=== PATIENT | male | born 1995 | race Caucasian/White ===

== ENCOUNTER 2019-09-02 15:09 | Outpatient (CLI) | payer BC, SELFPAY ==
[2019-09-02 15:41] LABS: Basophils Absolute Auto 0.1 K/mm3 (0.0-0.1); Basophils Percent Auto 0.6 % (0.2-1.2); Eosinophils Absolute Auto 0.3 K/mm3 (0-0.3); Hematocrit 39.8 % (42.0-52.0); Hemoglobin 13.9 g/dL (14.0-18.0); Immature Granulocyte Absolute 0.03 K/mm3 (0.00-0.031); Immature Granulocyte Percent A 0.4 % (0-0.5); Lymphocytes Absolute Auto 2.68 K/mm3 (0.9-3.2); Lymphocytes Percent Auto 34.4 % (18.3-44.2); Mean Corpuscular HGB Conc 34.9 g/dl (32-36); Mean Corpuscular Hemoglobin 28.3 pg (26-34); Mean Corpuscular Volume 81.1 fl (80-100); Mean Platelet Volume 8.9 fl (7.4-10.4); Monocytes Absolute Auto 0.7 K/mm3 (0.1-0.6); Monocytes Percent Auto 8.6 % (2.6-8.5); Neutrophils Absolute Auto 4.1 K/mm3 (1.3-6.7); Platelet Count Result 364 k/mm3 (150-375); Red Blood Count 4.91 M/mm3 (4.6-6.20); Red Cell Distribution Width 12.4 % (11.5-14.5); White Blood Count 7.8 K/mm3 (4.5-10.0)
[2019-09-02 16:23] LABS: Thyroid Stimulating Hormone 0.936 uIU/mL (0.465-4.680)
[2019-09-02 16:59] LABS: Free T4 Free Thyroxine 1.24 ng/mL (0.78-2.19)
== END 2019-09-02 15:10 | disposition home or self-care (01) ==
PROVIDERS: PCP Family Medicine; Visit Provider Nurse Practitioner Family
DX: R22.9 Localized swelling, mass and lump, unspecified (principal); Z13.29 Encounter for screening for other suspected endocrine disorder
CPT/HCPCS: 36415; 84439; 84443; 85025

== ENCOUNTER 2019-09-09 14:52 | Outpatient (CLI) | payer BC, SELFPAY ==
--- NOTE | ~2019-09-09 | US_ITS ---
EXAMINATION: US thyroid DATE: 09/09/2019 15:29 INDICATION: Localized swelling, mass and lump at the neck. TECHNIQUE: Multiple ultrasound images of the thyroid were obtained. COMPARISON: None. FINDINGS: The right thyroid lobe measures 4.9 x 1.4 x 1.6 cm. The left thyroid lobe measures 5.3 x 1.8 x 1.8 c m. The thyroid isthmus measures 2 mm in thickness. Mixed solid and cystic hypoechoic nodule with smoo th margins and without echogenic foci in the left thyroid which is wider than tall measuring 1.9 x 1. 2 x 1.5 cm (TI-RADS 3, mildly suspicious , FNA if >=2.5 cm, annual followup is >1.5 cm). There is no rmal echotexture, echogenicity and vascular flow throughout the thyroid gland. IMPRESSION: 1. 1.9 cm mixed solid and cystic TI-RADS 3 nodule for which continued annual ultrasound follow-up is recommended. Reviewed, dictated and finalized at location A. IMPRESSION: 1. 1.9 cm mixed solid and cystic TI-RADS 3 nodule for which continued annual ul trasound follow-up is recommended.
== END 2019-09-09 14:53 | disposition home or self-care (01) ==
PROVIDERS: PCP Family Medicine; Visit Provider Nurse Practitioner Family
DX: R22.9 Localized swelling, mass and lump, unspecified (principal)
CPT/HCPCS: 76536

== ENCOUNTER 2020-02-03 17:25 | Emergency (ER) | payer BC, SELFPAY ==
[2020-02-03 17:33] VITALS: BP 125/80; PULSE 71; RESP 20; TEMP 36.9; O2SAT 100
--- NOTE | 2020-02-03 17:34 | ED.EYEPROB ---
HPI - Eye Problem General Chief complaint: Eye Problems Stated complaint: eye irritation Time Seen by Provider: 02/03/20 17:34 Source: patient and RN notes reviewed Mode of arrival: ambulatory Limitations: no limitations History of Present Illness HPI Narrative: 24-year-old male who presents to [facility] with injury to his left eye which occurred at home when he was searching for something in his toolbox and aluminum bar came out and hit him in his left eye. Left eye is tearing and patient states discomfort and is unable to open his eye with redness to sclera noted.Patient states that vision is blurry. chief complaint: eye pain and eye injury Onset (ago): minute(s) (occurred just prior to arrival) Onset description: sudden Duration: constant Location: left eye Eye Symptoms: pain, photophobia and other (excessive tearing) Place: home Mechanism: direct trauma Severity: severe Severity scale (1-10): 8 If Pain, Quality: sharp Context: trauma Associated symptoms: none Treatments Prior to Arrival: none Related Data Patient tetanus UTD: Yes Allergies Allergy/AdvReac Type Severity Reaction Status Date / Time No Known Allergies Allergy Mild Verified 02/03/20 17:34 Review of Systems Review of Systems: Narrative: CONSTITUTIONAL: Denies fever, chills, or sweats. EYES: Reports that his vision is blurry, redness to sclera, excessive tearing and pain to left eye. ENT: Denies rhinorrhea, congestion, sore throat, or otalgia. CARDIOVASCULAR: Denies chest pain, palpitations, or edema. RESPIRATORY: Denies cough or dyspnea. GASTROINTESTINAL: Denies abdominal pain, nausea, vomiting, or diarrhea. GENITOURINARY: Denies dysuria or hematuria. SKIN: Denies rash or itching. MUSCULOSKELETAL: Denies back pain, joint pain, or myalgia. NEUROLOGIC: Denies headache, numbness, or weakness. PSYCHIATRIC: Denies anxiety or depression. All systems reviewed & are unremarkable except as noted in HPI and below PMFSH Past Medical History Medical History (Updated 02/04/20 @ 08:46 by Lidia Pena NP) Leg fracture, right Surgical History Surgical History (Updated 02/04/20 @ 08:46 by Lidia Pena NP) History of mandibular surgery Family History Family History (Updated 02/04/20 @ 08:47 by Lidia Pena NP) Father Hypertension Grandparent Diabetes mellitus Social History Social History (Updated 02/04/20 @ 08:48 by Lidia Pena NP) Smoking status: Never smoker Alcohol intake: current Living arrangements: with family Additional occupation/education comments: engineer [employer] Gender identity (if verbalized by the patient): Male Comments At time of signature, agree with nursing past medical, surgical, social and family history. There is no relevant family history pertinent to the presenting complaint Exam Narrative: Exam Narrative: GENERAL: Well-appearing, well-nourished, and in no acute distress. HEAD: Normocephalic, atraumatic. EYES: PERRLA and EOMI,photophobia noted with sclera red and irritated, pain to left eye with excessive tearing noted. Visual acuity left eye 20/30, right 20/20 with glasses ENT: Nares clear, no rhinorrhea or epistaxis. Mucous membranes moist. NECK: Supple. no lymphadenopathy CHEST: Clear to auscultation. No respiratory distress.SAO2 100% on room air. HEART: Regular rate and rhythm. No murmur heard. Normal peripheral pulses. ABDOMEN: Soft, nontender, nondistended, normal active bowel sounds. EXTREMITIES: Normal range of motion. No edema. SKIN: Warm, dry, no rash. NEURO: No focal deficits. Alert and oriented x3. Course Vital Signs Vital signs: Vital Signs Temperature 36.9 C 02/03/20 17:33 Pulse Rate 71 02/03/20 17:33 Respiratory Rate 20 02/03/20 17:33 Blood Pressure 125/80 02/03/20 17:33 Pulse Oximetry 100 02/03/20 17:33 Temperature 36.9 C 02/03/20 17:33 Pulse Rate 71 02/03/20 17:33 Respiratory Rate 20 02/03/20 17:33 Blood Pressure 125/80
== END 2020-02-03 18:08 | disposition home or self-care (01) ==
PROVIDERS: Emergency Provider Registered Nurse; PCP Family Medicine
DX: S05.02XA Injury of conjunctiva and corneal abrasion without foreign body, left eye, initial encounter (principal); W22.8XXA Striking against or struck by other objects, initial encounter
CPT/HCPCS: 99213; A9270; G0463

== ENCOUNTER → 2020-10-26 11:52 | Outpatient (CLI) | payer BC, SELFPAY ==
--- NOTE | ~2020-10-26 | XR_ITS ---
EXAMINATION: XR chest 2V EXAM DATE: 10/26/2020 12:13 INDICATION: Mild intermittent asthma w acute exacerbation, chronic dry cough . Shortness of breath fo r 3 weeks. TECHNIQUE: Frontal and lateral projections of the chest obtained and reviewed. Comparison is made to prior examination from 06/20/2017. FINDINGS: Moderate hyperinflation. The lungs are clear. There are no pleural effusions. The cardio mediastinal silhouette is within normal limits. There is no pneumothorax suspected. The bones and s oft tissues are unremarkable. IMPRESSION: 1. No acute cardiopulmonary findings. 2. Hyperinflation. Reviewed, dictated and finalized at location B.
== END ==
DX: J45.21 Mild intermittent asthma with (acute) exacerbation (principal); R05 Cough; R91.8 Other nonspecific abnormal finding of lung field
CPT/HCPCS: 71046